=== PATIENT | female | born 1970 | race Caucasian/White ===

== ENCOUNTER 2016-08-02 16:31 | Emergency (ER) | payer OTHER ==
[~2016-08-02] VITALS: Ht 162.6 cm; Wt 77.1 kg
--- NOTE | ~2016-08-02 | EKG ---
[place] [address] 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
[2016-08-02] MEDS ORDERED: LEVOTHYROXIN0.175 MG PO (16:39)
[2016-08-02 17:49] LABS: HEMATOCRIT 44.4 % (37.0-47.0); HEMOGLOBIN 15.5 gm/dL (12.0-15.0); MANUAL DIFF YES; MCH 31.9 pg (26.0-34.0); MCV 91.3 fL (80.0-100.0); PLATELET COUNT 294 thou/uL (150-400); RBC 4.86 mil/uL (4.20-5.00); RDW 13.3 % (10.5-14.5); WBC 14.7 thou/uL (4.0-11.0)
[2016-08-02 17:52] LABS: ANION GAP 13 mmol/L (7-16); BUN 12 mg/dL (7-18); CALCIUM 9.5 mg/dL (8.5-10.1); CHLORIDE 100 mmol/L (98-107); CO2 21 mmol/L (21-32); CREATININE 0.8 mg/dL (0.6-1.0); GLUCOSE 100 mg/dL (74-106); POTASSIUM 3.5 mmol/L (3.5-5.1); SODIUM 134 mmol/L (136-145)
[2016-08-02 18:02] LABS: TROPONIN-I < 0.04 ng/mL (<0.04-0.07)
[2016-08-02 18:07] LABS: ABSOLUTE NEUTROPHILS 12.2 thou/uL (1.4-8.2); TOTAL CELL COUNT 100
[2016-08-02 18:08] LABS: ANISOCYTOSIS 1+; POLYCHROMASIA OCCASIONAL
[2016-08-02] MEDS ORDERED: PREDNISONE 20 M20 MG PO (18:41)
[2016-08-02 18:55] VITALS: BP 129/87
== END 2016-08-02 18:55 | disposition home or self-care (01) ==
LOC: ER 16:31
PROVIDERS: Emergency Medicine
DX: T78.1XXA Other adverse food reactions, not elsewhere classified, initial encounter (principal); X58.XXXA Exposure to other specified factors, initial encounter; Z90.710 Acquired absence of both cervix and uterus; Z91.040 Latex allergy status; Z91.041 Radiographic dye allergy status